=== PATIENT | female | born 1970 | race African-American/Black ===

== ENCOUNTER 2021-04-22 12:11 | Inpatient (IN) | payer MEDICAID, OTHER ==
[~2021-04-22] VITALS: Ht 157.5 cm; Wt 104.3 kg
[2021-04-22] MEDS ORDERED: ASPIRIN 325MG EC TABLET PO ONE (13:15)
[2021-04-22] MEDS ORDERED: LORAZEPAM 1MG TABLET PO ONE (13:15)
[2021-04-22 14:11] LABS: BASOPHILS % 0.3 % (0.0-2.0); EOSINOPHILS % 0.8 % (0.0-5.0); HEMATOCRIT. 32.4 % (36.0-48.0); HEMOGLOBIN. 11.1 g/dL (12.0-16.0); LYMPHOCYTES % 23.9 % (20.0-50.0); MEAN CORPUSCULAR HEMOGLOBIN 28.4 pg (28.0-32.0); MEAN CORPUSCULAR VOLUME 82.9 fL (81.0-99.0); MEAN PLATELET VOLUME 7.9 fl (7.4-10.4); PLATELET 265 x1000/uL (130-400); RED BLOOD CELL COUNT 3.91 mill/uL (4.2-5.4); RED CELL DISTRIBUTION WIDTH 13.3 % (11.6-14.6)
[2021-04-22 14:18] LABS: CHLORIDE 107 mEq/L (98-107)
[2021-04-22] MEDS ORDERED: ACETAMINOPHEN 325MG TABLET PO PRN (15:30)
[2021-04-22] MEDS ORDERED: MORPHINE SULFATE 2 MG/ML CPJ (NOT FOR IM USE) IV PRN (15:30)
[2021-04-22] MEDS ORDERED: ONDANSETRON HCL 4MG/2ML INJ IV PRN (15:30)
[2021-04-22] MEDS ORDERED: IPRATROPIUM/ALBUTEROL 0.5-3(2.5)MG/3ML NEB HHN PRN (15:30)
[2021-04-22] MEDS ORDERED: NALOXONE HCL 0.4MG/ML VIAL IV PRN (15:30)
[2021-04-22] MEDS ORDERED: CLONIDINE 0.1MG TABLET PO PRN (15:30)
[2021-04-22] MEDS ORDERED: DIPHENHYDRAMINE 50MG/ML VIAL IV PRN (15:30)
[2021-04-22] MEDS: ENOXAPARIN 40MG/0.4ML SYR SUBCUT SCH (16:27)
[2021-04-22] MEDS: METOPROLOL TARTRATE 25MG TABLET PO SCH (21:00)
[2021-04-22 21:35] VITALS: BP 106/59
[2021-04-23] MEDS ORDERED: FERR325T23 MT (00:16)
[2021-04-23] MEDS ORDERED: ASCO100T12 PO (00:16)
[2021-04-23 00:27] VITALS: BP 93/44
[2021-04-23] MEDS ORDERED: PNEUMOCOCCAL 23-VAL P-SAC VAC 0.5 ML IM ONE (00:30)
[2021-04-23 04:00] VITALS: BP 103/64
[2021-04-23 06:40] LABS: CHLORIDE 109 mEq/L (98-107)
[2021-04-23 06:49] LABS: LDL CHOLESTEROL 105 mg/dL (5-100)
[2021-04-23 06:51] LABS: HDL CHOLESTEROL 53 mg/dL (40-59)
[2021-04-23 07:06] LABS: BASOPHILS % 0.4 % (0.0-2.0); EOSINOPHILS % 2.3 % (0.0-5.0); HEMATOCRIT. 33.3 % (36.0-48.0); HEMOGLOBIN. 11.1 g/dL (12.0-16.0); LYMPHOCYTES % 33.4 % (20.0-50.0); MEAN CORPUSCULAR HEMOGLOBIN 27.9 pg (28.0-32.0); MEAN CORPUSCULAR VOLUME 83.7 fL (81.0-99.0); MEAN PLATELET VOLUME 8.3 fl (7.4-10.4); MONOCYTES % 7.9 % (2.0-8.0); PLATELET 261 x1000/uL (130-400); RED BLOOD CELL COUNT 3.98 mill/uL (4.2-5.4); RED CELL DISTRIBUTION WIDTH 13.3 % (11.6-14.6)
[2021-04-23 08:23] VITALS: BP 102/66
[2021-04-23] MEDS: METOPROLOL TARTRATE 25MG TABLET PO SCH ×2 (08:44→20:54)
[2021-04-23 12:16] VITALS: BP 108/56
[2021-04-23 16:30] VITALS: BP 102/58
[2021-04-23 16:44] LABS: CLARITY URINE CLEAR (CLEAR); COLOR URINE YELLOW (YELLOW); KETONES URINE NEGATIVE (NEGATIVE); LEUKOCYTE ESTERASE URINE 1+ (NEGATIVE); NITRITE URINE NEGATIVE (NEGATIVE); OCCULT BLOOD URINE 1+ (NEGATIVE); PROTEIN URINE NEGATIVE (NEGATIVE); SPECIFIC GRAVITY URINE 1.022 (1.005-1.030); UROBILINOGEN URINE 0.2 E.U./dL (0.2-1.0)
[2021-04-23] MEDS: ENOXAPARIN 40MG/0.4ML SYR SUBCUT SCH (18:01)
[2021-04-23 20:15] VITALS: BP 106/69
[2021-04-23] MEDS ORDERED: LORAZEPAM 2MG/ML CPJ IV PRN (20:45)
[2021-04-24 00:30] VITALS: BP 106/53
[2021-04-24 04:30] VITALS: BP 117/64
[2021-04-24 06:06] LABS: BASOPHILS % 0.5 % (0.0-2.0); EOSINOPHILS % 2.6 % (0.0-5.0); HEMATOCRIT. 33.4 % (36.0-48.0); HEMOGLOBIN. 11.2 g/dL (12.0-16.0); LYMPHOCYTES % 38.4 % (20.0-50.0); MEAN CORPUSCULAR VOLUME 83.5 fL (81.0-99.0); MEAN PLATELET VOLUME 8.5 fl (7.4-10.4); NEUTROPHILS % 50.5 % (40.0-76.0); PLATELET 274 x1000/uL (130-400); RED CELL DISTRIBUTION WIDTH 13.4 % (11.6-14.6)
[2021-04-24 06:14] LABS: CHLORIDE 110 mEq/L (98-107)
[2021-04-24 08:30] VITALS: BP 109/66
[2021-04-24] MEDS: METOPROLOL TARTRATE 25MG TABLET PO SCH ×2 (08:39→21:00)
[2021-04-24] MEDS: ASPIRIN 81MG TABLET PO SCH (08:52)
[2021-04-24 12:08] VITALS: BP 119/71
[2021-04-24] MEDS ORDERED: CEFTRIAXONE 1 G PREMIX 50 ML IV SCH (15:30)
[2021-04-24 16:24] VITALS: BP 117/60
[2021-04-24] MEDS ORDERED: CEFTRIAXONE 1,000 MG in DEXTROSE 5% WATER 50 ML IV SCH (17:00)
[2021-04-24] MEDS: ENOXAPARIN 40MG/0.4ML SYR SUBCUT SCH (17:00)
[2021-04-24 20:00] VITALS: BP 92/51
[2021-04-25] VITALS: BP 111/67
[2021-04-25 04:00] VITALS: BP 119/77
[2021-04-25 06:33] LABS: BASOPHILS % 0.3 % (0.0-2.0); EOSINOPHILS % 2.4 % (0.0-5.0); HEMATOCRIT. 33.1 % (36.0-48.0); HEMOGLOBIN. 10.9 g/dL (12.0-16.0); LYMPHOCYTES % 38.1 % (20.0-50.0); MEAN CORPUSCULAR HEMOGLOBIN 27.6 pg (28.0-32.0); MEAN CORPUSCULAR VOLUME 83.6 fL (81.0-99.0); MEAN PLATELET VOLUME 8.4 fl (7.4-10.4); MONOCYTES % 9.4 % (2.0-8.0); NEUTROPHILS % 49.8 % (40.0-76.0); PLATELET 256 x1000/uL (130-400); RED BLOOD CELL COUNT 3.96 mill/uL (4.2-5.4); RED CELL DISTRIBUTION WIDTH 13.4 % (11.6-14.6)
[2021-04-25 07:00] LABS: CHLORIDE 108 mEq/L (98-107)
[2021-04-25 08:00] VITALS: BP 119/77
[2021-04-25] MEDS: METOPROLOL TARTRATE 25MG TABLET PO SCH (09:38)
[2021-04-25] MEDS: ASPIRIN 81MG TABLET PO SCH (09:38)
[2021-04-25] MEDS ORDERED: NITROGLYCERIN SPRAY/4.9GM CAN TL ONE (10:00)
[2021-04-25] MEDS ORDERED: IOHEXOL-350 100 ML BOTTLE ONE (10:11)
[2021-04-25] MEDS ORDERED: ASPI-1160 PO (12:44)
[2021-04-25] MEDS ORDERED: METO25TA6 PO (12:44)
[2021-04-25 15:10] VITALS: BP 100/53
[2021-04-25] MEDS ORDERED: ENOXAPARIN 30MG/0.3ML SYR SUBCUT SCH (18:00)
== END 2021-04-25 16:06 | disposition home or self-care (01) | DRG 203 ==
LOC: ER 12:11 → 6WST 14:56 → ENRESERV 20:18
PROVIDERS: ADMIT Internal Medicine; ATTEND Internal Medicine
DX: R07.89 Other chest pain (principal); D64.9 Anemia, unspecified; M79.602 Pain in left arm; R20.0 Anesthesia of skin; Z83.3 Family history of diabetes mellitus
CPT/HCPCS: 36415; 71045; 75571; 80048; 80053; 80061; 81003; 83880; 84443; 84484; 85025; 93005; 93306; 93970; 94640; 99285; J0696; J1650; J2060; J2270; J7060; Q9967

== ENCOUNTER 2021-05-18 02:13 | Emergency (ER) | payer OTHER ==
[~2021-05-18] VITALS: Ht 157.5 cm; Wt 73.0 kg
[~2021-05-18 02:13] MED LIST: ASCO100T12 PO; ASPI-1160 PO; FERR325T23 MT; METO25TA6 PO
[2021-05-18 03:36] VITALS: BP 93/62
[2021-05-19] MEDS ORDERED: ASCO100T12 PO (01:35)
== END 2021-05-18 05:10 | disposition home or self-care (01) ==
LOC: ER 02:13
DX: U07.1 COVID-19 (principal)
CPT/HCPCS: 99281

== ENCOUNTER 2021-05-18 13:02 | Inpatient (IN) | payer OTHER ==
[~2021-05-18] VITALS: Ht 154.9 cm; Wt 86.7 kg
[2021-05-18] MEDS ORDERED: DEXAMETHASONE 10 MG/ML VIAL IV NR (14:00)
[2021-05-18] MEDS ORDERED: DOXYCYCLINE HYCLATE 100MG CAPSULE PO NR (14:30)
[2021-05-18 15:11] LABS: BASOPHILS % 0.3 % (0.0-2.0); CHLORIDE 96 mEq/L (98-107); HEMATOCRIT. 33.8 % (36.0-48.0); HEMOGLOBIN. 11.3 g/dL (12.0-16.0); MEAN CORPUSCULAR HEMOGLOBIN 27.4 pg (28.0-32.0); MEAN CORPUSCULAR VOLUME 81.8 fL (81.0-99.0); MEAN PLATELET VOLUME 9.2 fl (7.4-10.4); MONOCYTES % 6.7 % (2.0-8.0); PLATELET 226 x1000/uL (130-400); RED BLOOD CELL COUNT 4.14 mill/uL (4.2-5.4); RED CELL DISTRIBUTION WIDTH 13.1 % (11.6-14.6)
[2021-05-18] MEDS ORDERED: LACTATED RINGERS 1,000 ML IV SCH (15:30)
[2021-05-18 23:50] VITALS: BP 105/66
[2021-05-19] VITALS: BP 105/66
[2021-05-19] MEDS ORDERED: ASCO100T12 PO (01:35)
[2021-05-19 04:00] VITALS: BP 109/70
[2021-05-19] MEDS ORDERED: HYDROCODONE/ACETAMINOPHEN 5/325MG TABLET PO PRN (06:30)
[2021-05-19 08:00] VITALS: BP 104/64
[2021-05-19] MEDS ORDERED: NALOXONE HCL 0.4MG/ML VIAL IV PRN (08:15)
[2021-05-19] MEDS: FAMOTIDINE 20MG TABLET PO SCH ×2 (08:52→17:55)
[2021-05-19] MEDS: DEXAMETHASONE 4MG/ML 1ML VIAL IV SCH (08:52)
[2021-05-19] MEDS: ASPIRIN 81MG TABLET PO SCH (08:52)
[2021-05-19] MEDS: ENOXAPARIN 40MG/0.4ML SYR SUBCUT SCH (08:53)
[2021-05-19] MEDS: CEFTRIAXONE 1,000 MG in DEXTROSE 5% WATER 50 ML IV SCH (11:35)
[2021-05-19] MEDS: AZITHROMYCIN 500 MG in DEXT 5% WATER 250 ML IV SCH (11:36)
[2021-05-19 12:00] VITALS: BP 104/64
[2021-05-19 16:00] VITALS: BP 100/67
[2021-05-19 16:01] LABS: HEMATOCRIT. 32.6 % (36.0-48.0); HEMOGLOBIN. 11.1 g/dL (12.0-16.0); MEAN CORPUSCULAR HEMOGLOBIN 27.9 pg (28.0-32.0); MEAN CORPUSCULAR VOLUME 82.1 fL (81.0-99.0); MEAN PLATELET VOLUME 9.3 fl (7.4-10.4); PLATELET 274 x1000/uL (130-400); RED BLOOD CELL COUNT 3.96 mill/uL (4.2-5.4); RED CELL DISTRIBUTION WIDTH 13.5 % (11.6-14.6)
[2021-05-19 16:29] LABS: LDL CHOLESTEROL 134 mg/dL (5-100)
[2021-05-19 16:30] LABS: HDL CHOLESTEROL 51 mg/dL (40-59)
[2021-05-19 16:57] LABS: CHLORIDE 98 mEq/L (98-107)
[2021-05-19 17:28] LABS: PLATELET ESTIMATE NORMAL
[2021-05-19] MEDS: ACETAMINOPHEN 325MG TABLET PO PRN (18:26)
[2021-05-19 20:00] VITALS: BP 116/70
[2021-05-19] MEDS: GUAIFENESIN 600MG ER TABLET PO SCH (20:55)
[2021-05-20] VITALS: BP 108/70
[2021-05-20 04:00] VITALS: BP 106/61
[2021-05-20] MEDS: ACETAMINOPHEN 325MG TABLET PO PRN (05:41)
[2021-05-20] MEDS: BENZONATATE 100MG CAPSULE PO PRN (05:46)
[2021-05-20 08:00] VITALS: BP 107/63
[2021-05-20] MEDS: FAMOTIDINE 20MG TABLET PO SCH ×2 (08:26→17:16)
[2021-05-20] MEDS: ASPIRIN 81MG TABLET PO SCH (08:26)
[2021-05-20] MEDS: ENOXAPARIN 40MG/0.4ML SYR SUBCUT SCH (08:26)
[2021-05-20] MEDS: GUAIFENESIN 600MG ER TABLET PO SCH ×2 (08:26→20:09)
[2021-05-20] MEDS: DEXAMETHASONE 4MG/ML 1ML VIAL IV SCH (08:26)
[2021-05-20] MEDS: CEFTRIAXONE 1,000 MG in DEXTROSE 5% WATER 50 ML IV SCH (08:27)
[2021-05-20] MEDS: AZITHROMYCIN 500 MG in DEXT 5% WATER 250 ML IV SCH (08:27)
[2021-05-20 12:00] VITALS: BP 102/73
[2021-05-20 16:00] VITALS: BP 112/76
[2021-05-20 20:00] VITALS: BP 113/68
[2021-05-21] VITALS: BP 115/70
[2021-05-21 04:00] VITALS: BP 120/68
[2021-05-21 08:00] VITALS: BP 97/54
[2021-05-21] MEDS: GUAIFENESIN 600MG ER TABLET PO SCH ×2 (08:46→20:09)
[2021-05-21] MEDS: DEXAMETHASONE 4MG/ML 1ML VIAL IV SCH (08:46)
[2021-05-21] MEDS: CEFTRIAXONE 1,000 MG in DEXTROSE 5% WATER 50 ML IV SCH (08:46)
[2021-05-21] MEDS: ASPIRIN 81MG TABLET PO SCH (08:46)
[2021-05-21] MEDS: FAMOTIDINE 20MG TABLET PO SCH ×2 (08:46→15:52)
[2021-05-21] MEDS: AZITHROMYCIN 500 MG in DEXT 5% WATER 250 ML IV SCH (08:47)
[2021-05-21] MEDS: ENOXAPARIN 40MG/0.4ML SYR SUBCUT SCH (08:47)
[2021-05-21 12:00] VITALS: BP 115/66
[2021-05-21 16:00] VITALS: BP 107/63
[2021-05-21 20:00] VITALS: BP 124/77
[2021-05-22] VITALS: BP 100/45
[2021-05-22 04:00] VITALS: BP 120/70
[2021-05-22 08:00] VITALS: BP 93/60
[2021-05-22] MEDS: CEFTRIAXONE 1,000 MG in DEXTROSE 5% WATER 50 ML IV SCH (08:32)
[2021-05-22] MEDS: FAMOTIDINE 20MG TABLET PO SCH ×2 (08:33→16:15)
[2021-05-22] MEDS: DEXAMETHASONE 4MG/ML 1ML VIAL IV SCH (08:33)
[2021-05-22] MEDS: GUAIFENESIN 600MG ER TABLET PO SCH ×2 (08:33→20:43)
[2021-05-22] MEDS: ASPIRIN 81MG TABLET PO SCH (08:33)
[2021-05-22] MEDS: AZITHROMYCIN 500 MG TABLET PO SCH (08:33)
[2021-05-22] MEDS: ENOXAPARIN 40MG/0.4ML SYR SUBCUT SCH (08:34)
[2021-05-22 12:00] VITALS: BP 103/74
[2021-05-22 16:00] VITALS: BP 110/79
[2021-05-22 20:00] VITALS: BP 142/72
[2021-05-23 00:36] VITALS: BP 100/55
[2021-05-23 04:00] VITALS: BP 103/55
[2021-05-23 08:00] VITALS: BP 114/67
[2021-05-23] MEDS: AZITHROMYCIN 500 MG TABLET PO SCH (08:48)
[2021-05-23] MEDS: ASPIRIN 81MG TABLET PO SCH (08:48)
[2021-05-23] MEDS: CEFTRIAXONE 1,000 MG in DEXTROSE 5% WATER 50 ML IV SCH (08:48)
[2021-05-23] MEDS: FAMOTIDINE 20MG TABLET PO SCH ×2 (08:49→16:50)
[2021-05-23] MEDS: DEXAMETHASONE 4MG/ML 1ML VIAL IV SCH (08:49)
[2021-05-23] MEDS: GUAIFENESIN 600MG ER TABLET PO SCH ×2 (08:49→19:43)
[2021-05-23] MEDS: ENOXAPARIN 40MG/0.4ML SYR SUBCUT SCH (08:51)
[2021-05-23 12:00] VITALS: BP 112/56
[2021-05-23 16:00] VITALS: BP 91/68
[2021-05-23 19:52] VITALS: BP 129/68
[2021-05-24] VITALS: BP 106/53
[2021-05-24 04:00] VITALS: BP 110/68
[2021-05-24 08:00] VITALS: BP 107/68
[2021-05-24] MEDS: FAMOTIDINE 20MG TABLET PO SCH (08:32)
[2021-05-24] MEDS: ENOXAPARIN 40MG/0.4ML SYR SUBCUT SCH (08:32)
[2021-05-24] MEDS: GUAIFENESIN 600MG ER TABLET PO SCH (08:32)
[2021-05-24] MEDS: BENZONATATE 100MG CAPSULE PO PRN (08:32)
[2021-05-24] MEDS: DEXAMETHASONE 4MG/ML 1ML VIAL IV SCH (08:32)
[2021-05-24] MEDS: ASPIRIN 81MG TABLET PO SCH (08:32)
[2021-05-24] MEDS ORDERED: DEXA6TAB MT (11:36)
[2021-05-24 11:58] VITALS: BP 110/62
[2021-05-24 12:00] VITALS: BP 110/62
== END 2021-05-24 12:30 | disposition home or self-care (01) | DRG 720 ==
LOC: ER 13:02 → EDBEDREQ 16:31 → EDBEDREQTM 16:31 → MICUSO 19:00 → 6WST 21:16 → 7WST 05-19 08:03
PROVIDERS: ADMIT Internal Medicine; ATTEND Internal Medicine
DX: A41.89 Other specified sepsis (principal); J96.01 Acute respiratory failure with hypoxia; J12.82 Pneumonia due to coronavirus disease 2019; U07.1 COVID-19; E87.1 Hypo-osmolality and hyponatremia; E78.5 Hyperlipidemia, unspecified; D64.9 Anemia, unspecified; E66.9 Obesity, unspecified; J98.11 Atelectasis; Z98.891 History of uterine scar from previous surgery; Z71.3 Dietary counseling and surveillance; Z79.899 Other long term (current) drug therapy; Z79.82 Long term (current) use of aspirin; Z68.36 Body mass index [BMI] 36.0-36.9, adult
CPT/HCPCS: 36415; 71045; 80048; 80053; 80061; 83880; 84145; 84484; 85025; 87426; 93005; 99291; J0456; J0696; J1100; J1650; J7040; J7060; U0003; U0005

== ENCOUNTER 2021-09-11 19:58 | Emergency (ER) | payer MEDICAID, OTHER ==
[~2021-09-11] VITALS: Ht 154.9 cm; Wt 97.0 kg
[~2021-09-11 19:58] MED LIST changes: +DEXA6TAB MT
[2021-09-11 20:58] VITALS: BP 147/48
[2021-09-11] MEDS ORDERED: KETOROLAC 60MG/2ML VIAL IM ONE (22:45)
[2021-09-11 22:53] LABS: CLARITY URINE CLEAR (CLEAR); COLOR URINE YELLOW (YELLOW); KETONES URINE TRACE (NEGATIVE); LEUKOCYTE ESTERASE URINE 2+ (NEGATIVE); NITRITE URINE NEGATIVE (NEGATIVE); OCCULT BLOOD URINE TRACE (NEGATIVE); PH URINE 5.5 (4.5-8.0); PROTEIN URINE NEGATIVE (NEGATIVE); SPECIFIC GRAVITY URINE 1.027 (1.005-1.030); UROBILINOGEN URINE 0.2 E.U./dL (0.2-1.0)
[2021-09-11] MEDS ORDERED: CIPR-263 MT (23:39)
== END 2021-09-12 00:18 | disposition home or self-care (01) ==
LOC: ER 19:58
DX: N12 Tubulo-interstitial nephritis, not specified as acute or chronic (principal); Z86.16 Personal history of COVID-19
CPT/HCPCS: 71045; 81003; 87086; 96372; 99284; J1885

== ENCOUNTER 2021-09-26 16:45 | Emergency (ER) | payer OTHER ==
[~2021-09-26 16:45] MED LIST changes: +CIPR-263 MT
== END 2021-09-27 01:22 | disposition left against medical advice (07) ==
LOC: ER 16:45
DX: M79.602 Pain in left arm (principal); Z53.21 Procedure and treatment not carried out due to patient leaving prior to being seen by health care provider

== ENCOUNTER 2021-10-26 12:13 | Emergency (ER) | payer OTHER ==
[~2021-10-26] VITALS: Ht 154.9 cm; Wt 97.0 kg
[2021-10-26] MEDS ORDERED: KETOROLAC 60MG/2ML VIAL IM ONE (12:45)
[2021-10-26] MEDS ORDERED: ACETAMINOPHEN 325MG TABLET PO ONE (13:30)
[2021-10-26 13:44] LABS: CLARITY URINE TURBID (CLEAR); COLOR URINE YELLOW (YELLOW); KETONES URINE NEGATIVE (NEGATIVE); LEUKOCYTE ESTERASE URINE NEGATIVE (NEGATIVE); NITRITE URINE NEGATIVE (NEGATIVE); OCCULT BLOOD URINE TRACE (NEGATIVE); PH URINE 5.5 (4.5-8.0); PROTEIN URINE TRACE (NEGATIVE); SPECIFIC GRAVITY URINE 1.025 (1.005-1.030); UROBILINOGEN URINE 0.2 E.U./dL (0.2-1.0)
[2021-10-26 13:59] LABS: BASOPHILS % 0.7 % (0.0-2.0); EOSINOPHILS % 1.5 % (0.0-5.0); HEMATOCRIT. 34.1 % (36.0-48.0); HEMOGLOBIN. 11.4 g/dL (12.0-16.0); LYMPHOCYTES % 29.5 % (20.0-50.0); MEAN CORPUSCULAR HEMOGLOBIN 27.2 pg (28.0-32.0); MEAN CORPUSCULAR VOLUME 81.3 fL (81.0-99.0); MEAN PLATELET VOLUME 7.8 fl (7.4-10.4); MONOCYTES % 6.4 % (2.0-8.0); NEUTROPHILS % 61.9 % (40.0-76.0); PLATELET 299 x1000/uL (130-400); RED BLOOD CELL COUNT 4.19 mill/uL (4.2-5.4); RED CELL DISTRIBUTION WIDTH 14.1 % (11.6-14.6)
[2021-10-26 14:06] LABS: CHLORIDE 107 mEq/L (98-107)
[2021-10-26] MEDS ORDERED: IBUP-2029 MT (14:36)
[2021-10-26] MEDS ORDERED: HYDR-4001 MT (14:36)
[2021-10-26 14:46] VITALS: BP 145/95
== END 2021-10-26 14:47 | disposition home or self-care (01) ==
LOC: ER 13:25
DX: R10.12 Left upper quadrant pain (principal); Z87.442 Personal history of urinary calculi
CPT/HCPCS: 36415; 80048; 81003; 81025; 85025; 96372; 99283; J1885

== ENCOUNTER 2021-11-18 19:18 | Emergency (ER) | payer OTHER ==
[~2021-11-18] VITALS: Ht 157.5 cm; Wt 105.0 kg
[~2021-11-18 19:18] MED LIST changes: +HYDR-4001 MT; +IBUP-2029 MT
[2021-11-18] MEDS ORDERED: KETOROLAC 30MG/ML VIAL IV STA (20:02)
[2021-11-18] MEDS ORDERED: ONDANSETRON HCL 4MG/2ML INJ IV STA (20:02)
[2021-11-18] MEDS ORDERED: SODIUM CHLORIDE 0.9% 1,000 ML IV ONE (20:15)
[2021-11-18 20:29] LABS: CHLORIDE 108 mEq/L (98-107)
[2021-11-18 20:30] LABS: BASOPHILS % 0.4 % (0.0-2.0); HEMATOCRIT. 33.5 % (36.0-48.0); HEMOGLOBIN. 11.2 g/dL (12.0-16.0); LYMPHOCYTES % 10.7 % (20.0-50.0); MEAN CORPUSCULAR HEMOGLOBIN 27.5 pg (28.0-32.0); MEAN CORPUSCULAR VOLUME 82.1 fL (81.0-99.0); MEAN PLATELET VOLUME 7.9 fl (7.4-10.4); MONOCYTES % 2.1 % (2.0-8.0); NEUTROPHILS % 86.8 % (40.0-76.0); PLATELET 303 x1000/uL (130-400); RED BLOOD CELL COUNT 4.08 mill/uL (4.2-5.4); RED CELL DISTRIBUTION WIDTH 13.8 % (11.6-14.6)
[2021-11-18 22:00] LABS: CLARITY URINE CLEAR (CLEAR); COLOR URINE YELLOW (YELLOW); KETONES URINE TRACE (NEGATIVE); LEUKOCYTE ESTERASE URINE NEGATIVE (NEGATIVE); NITRITE URINE NEGATIVE (NEGATIVE); OCCULT BLOOD URINE 2+ (NEGATIVE); PROTEIN URINE TRACE (NEGATIVE); SPECIFIC GRAVITY URINE 1.027 (1.005-1.030)
[2021-11-18] MEDS ORDERED: TAMSULOSIN HCL 0.4MG SR CAPSULE PO ONE (22:45)
[2021-11-18] MEDS ORDERED: IBUP-2028 MT (23:48)
[2021-11-18] MEDS ORDERED: TAMS-11 MT (23:48)
[2021-11-18] MEDS ORDERED: MORP15TA67 MT (23:48)
[2021-11-19] MEDS ORDERED: KETOROLAC 15MG/ML VIAL IV ONE
[2021-11-19 00:04] VITALS: BP 130/81
== END 2021-11-19 00:35 | disposition home or self-care (01) ==
LOC: ER 19:18
DX: N20.0 Calculus of kidney (principal); Z98.890 Other specified postprocedural states; Z79.82 Long term (current) use of aspirin
CPT/HCPCS: 36415; 74176; 80053; 81003; 83690; 85025; 87077; 87086; 96361; 96374; 96375; 96376; 99284; J1885; J2405; J7030

== ENCOUNTER 2021-11-25 22:23 | Emergency (ER) | payer OTHER ==
[~2021-11-25] VITALS: Ht 154.9 cm; Wt 105.0 kg
[~2021-11-25 22:23] MED LIST changes: +IBUP-2028 MT; +MORP15TA67 MT; +TAMS-11 MT
[2021-11-25] MEDS ORDERED: KETOROLAC 30MG/ML VIAL IM NR (23:30)
[2021-11-25] MEDS ORDERED: TRAMADOL 50MG TABLET PO NR (23:30)
[2021-11-25 23:48] LABS: CHLORIDE 107 mEq/L (98-107)
[2021-11-26 01:21] LABS: BASOPHILS % 0.4 % (0.0-2.0); EOSINOPHILS % 3.2 % (0.0-5.0); HEMATOCRIT. 32.4 % (36.0-48.0); HEMOGLOBIN. 10.7 g/dL (12.0-16.0); LYMPHOCYTES % 29.7 % (20.0-50.0); MEAN CORPUSCULAR HEMOGLOBIN 27.2 pg (28.0-32.0); MEAN CORPUSCULAR VOLUME 82.1 fL (81.0-99.0); MEAN PLATELET VOLUME 7.8 fl (7.4-10.4); MONOCYTES % 7.9 % (2.0-8.0); NEUTROPHILS % 58.8 % (40.0-76.0); PLATELET 303 x1000/uL (130-400); RED BLOOD CELL COUNT 3.94 mill/uL (4.2-5.4); RED CELL DISTRIBUTION WIDTH 13.5 % (11.6-14.6)
[2021-11-26] MEDS ORDERED: AMOX-424 MT (01:45)
[2021-11-26] MEDS ORDERED: TRAM50TA94 MT (01:45)
[2021-11-26 01:58] VITALS: BP 128/89
[2021-11-26] MEDS ORDERED: AMOXICILLIN/POTASSIUM CLAVULANATE 875/125MG TAB PO ONE (02:00)
== END 2021-11-26 02:07 | disposition home or self-care (01) ==
LOC: ER 22:23
DX: R59.0 Localized enlarged lymph nodes (principal); D72.818 Other decreased white blood cell count; I10 Essential (primary) hypertension; E78.00 Pure hypercholesterolemia, unspecified; E66.9 Obesity, unspecified; Z68.41 Body mass index [BMI] 40.0-44.9, adult; Z20.822 Contact with and (suspected) exposure to COVID-19
CPT/HCPCS: 36415; 71045; 80048; 81025; 85025; 96372; 99284; J1885

== ENCOUNTER 2021-12-09 20:31 | Emergency (ER) | payer OTHER ==
[~2021-12-09] VITALS: Ht 154.9 cm; Wt 103.0 kg
[~2021-12-09 20:31] MED LIST changes: +AMOX-424 MT; +TRAM50TA94 MT
[2021-12-09] MEDS ORDERED: ONDANSETRON HCL 4MG/2ML INJ IV ONE (23:45)
[2021-12-10 01:39] LABS: BASOPHILS % 0.7 % (0.0-2.0); EOSINOPHILS % 3.7 % (0.0-5.0); HEMATOCRIT. 34.1 % (36.0-48.0); HEMOGLOBIN. 11.5 g/dL (12.0-16.0); LYMPHOCYTES % 41.4 % (20.0-50.0); MEAN CORPUSCULAR HEMOGLOBIN 27.8 pg (28.0-32.0); MEAN CORPUSCULAR VOLUME 82.4 fL (81.0-99.0); MEAN PLATELET VOLUME 8.2 fl (7.4-10.4); MONOCYTES % 7.5 % (2.0-8.0); NEUTROPHILS % 46.7 % (40.0-76.0); PLATELET 301 x1000/uL (130-400); RED BLOOD CELL COUNT 4.14 mill/uL (4.2-5.4); RED CELL DISTRIBUTION WIDTH 13.2 % (11.6-14.6)
[2021-12-10 01:46] LABS: CHLORIDE 108 mEq/L (98-107)
[2021-12-10 01:50] LABS: CLARITY URINE CLEAR (CLEAR); COLOR URINE YELLOW (YELLOW); KETONES URINE TRACE (NEGATIVE); LEUKOCYTE ESTERASE URINE 2+ (NEGATIVE); NITRITE URINE NEGATIVE (NEGATIVE); OCCULT BLOOD URINE 2+ (NEGATIVE); PROTEIN URINE TRACE (NEGATIVE); SPECIFIC GRAVITY URINE 1.025 (1.005-1.030)
[2021-12-10] MEDS ORDERED: CEFTRIAXONE 1 G PREMIX 50 ML IV NR (03:15)
[2021-12-10] MEDS ORDERED: CEPH500T MT (03:17)
[2021-12-10 04:39] VITALS: BP 132/65
[2021-12-10] MEDS ORDERED: IOHEXOL-300 100 ML BOTTLE ONE (05:53)
== END 2021-12-10 04:41 | disposition home or self-care (01) ==
LOC: ER 20:31
DX: N39.0 Urinary tract infection, site not specified (principal); Z98.890 Other specified postprocedural states; Z79.82 Long term (current) use of aspirin
CPT/HCPCS: 36415; 71045; 74177; 80053; 81003; 83690; 84484; 85025; 87086; 93005; 96365; 96375; 99285; J0696; J2405; Q9967

== ENCOUNTER 2022-01-14 21:16 | Emergency (ER) | payer MEDICAID, OTHER ==
[~2022-01-14] VITALS: Ht 157.5 cm; Wt 107.3 kg
[~2022-01-14 21:16] MED LIST changes: +CEPH500T MT
[2022-01-14 22:35] LABS: BASOPHILS % 0.5 % (0.0-2.0); HEMATOCRIT. 33.9 % (36.0-48.0); HEMOGLOBIN. 11.1 g/dL (12.0-16.0); LYMPHOCYTES % 36.7 % (20.0-50.0); MEAN CORPUSCULAR HEMOGLOBIN 27.3 pg (28.0-32.0); MEAN CORPUSCULAR VOLUME 83.1 fL (81.0-99.0); MONOCYTES % 7.2 % (2.0-8.0); NEUTROPHILS % 53.6 % (40.0-76.0); PLATELET 294 x1000/uL (130-400); RED BLOOD CELL COUNT 4.08 mill/uL (4.2-5.4); RED CELL DISTRIBUTION WIDTH 13.1 % (11.6-14.6)
[2022-01-14 22:38] LABS: CHLORIDE 109 mEq/L (98-107)
[2022-01-15] MEDS ORDERED: BENZ-16 MT (01:01)
[2022-01-15 01:14] VITALS: BP 103/57
== END 2022-01-15 01:20 | disposition home or self-care (01) ==
LOC: ER 21:25
DX: B34.9 Viral infection, unspecified (principal); Z20.822 Contact with and (suspected) exposure to COVID-19; Z79.899 Other long term (current) drug therapy; Z98.890 Other specified postprocedural states
CPT/HCPCS: 36415; 71045; 80053; 83880; 84484; 85025; 87426; 87804; 93005; 99285

== ENCOUNTER 2022-02-14 12:14 | Emergency (ER) | payer OTHER ==
[~2022-02-14] VITALS: Ht 167.6 cm; Wt 91.0 kg
[~2022-02-14 12:14] MED LIST changes: +BENZ-16 MT
[2022-02-14] MEDS ORDERED: METH-653 MT (13:41)
[2022-02-14] MEDS ORDERED: IBUP-2029 MT (13:41)
[2022-02-14] MEDS ORDERED: KETOROLAC 60MG/2ML VIAL IM ONE (13:45)
[2022-02-14] MEDS ORDERED: METHOCARBAMOL 500MG TABLET PO ONE (13:45)
[2022-02-14 14:11] VITALS: BP 127/75
== END 2022-02-14 14:12 | disposition home or self-care (01) ==
LOC: ER 12:14
DX: M25.512 Pain in left shoulder (principal); Z79.899 Other long term (current) drug therapy; Z98.890 Other specified postprocedural states
CPT/HCPCS: 96372; 99283; J1885

== ENCOUNTER 2022-02-24 10:46 | Emergency (ER) | payer OTHER ==
[~2022-02-24] VITALS: Ht 165.1 cm; Wt 100.0 kg
[~2022-02-24 10:46] MED LIST changes: +METH-653 MT
[2022-02-24] MEDS ORDERED: NAPR-681 MT (12:15)
[2022-02-24] MEDS ORDERED: CYCL10TA7 MT (12:15)
[2022-02-24] MEDS ORDERED: KETOROLAC 60MG/2ML VIAL IM ONE (12:15)
[2022-02-24] MEDS ORDERED: AMOX-494 MT (12:15)
[2022-02-24 12:25] VITALS: BP 143/73
== END 2022-02-24 13:07 | disposition home or self-care (01) ==
LOC: ER 10:46
DX: H66.92 Otitis media, unspecified, left ear (principal); M54.2 Cervicalgia; D64.9 Anemia, unspecified; Z87.01 Personal history of pneumonia (recurrent); Z87.440 Personal history of urinary (tract) infections; Z79.899 Other long term (current) drug therapy
CPT/HCPCS: 96372; 99283; J1885

== ENCOUNTER 2025-05-25 23:53 | Emergency (ER) | payer OTHER ==
[~2025-05-25] VITALS: Ht 154.9 cm; Wt 101.0 kg
[~2025-05-25 23:53] MED LIST changes: +AMOX-494 MT; +CYCL10TA21 MT; +NAPR-681 MT; -TAMS-11 MT; +TAMS-54 MT
[2025-05-26 00:02] VITALS: O2SAT 100
[2025-05-26] MEDS: ONDANSETRON HCL 4MG/2ML INJ IV ONE (00:46)
[2025-05-26] MEDS: SODIUM CHLORIDE 0.9% 1,000 ML IV ONE (00:46)
[2025-05-26] MEDS: KETOROLAC 15MG/ML VIAL IV ONE (00:46)
[2025-05-26 00:52] LABS: BASOPHILS % 1.0 % (0.0-2.0); EOSINOPHILS % 1.5 % (0.0-5.0); HEMATOCRIT. 33.2 % (36.0-48.0); HEMOGLOBIN. 10.9 g/dL (12.0-16.0); LYMPHOCYTES % 39.4 % (20.0-50.0); MEAN PLATELET VOLUME 8.0 fl (7.4-10.4); MONOCYTES % 6.4 % (2.0-8.0); NEUTROPHILS % 51.7 % (40.0-76.0); PLATELET 307 x1000/uL (130-400); RED BLOOD CELL COUNT 4.03 mill/uL (4.2-5.4); RED CELL DISTRIBUTION WIDTH 13.7 % (11.6-14.6)
[2025-05-26 00:56] LABS: CLARITY URINE CLEAR (CLEAR); COLOR URINE YELLOW (YELLOW); GLUCOSE URINE NEGATIVE (NEGATIVE); KETONES URINE TRACE (NEGATIVE); LEUKOCYTE ESTERASE URINE NEGATIVE (NEGATIVE); NITRITE URINE NEGATIVE (NEGATIVE); OCCULT BLOOD URINE TRACE (NEGATIVE); PH URINE 5.5 (4.5-8.0); PROTEIN URINE NEGATIVE (NEGATIVE); SPECIFIC GRAVITY URINE 1.026 (1.005-1.030); UROBILINOGEN URINE 0.2 E.U./dL (0.2-1.0)
[2025-05-26 01:01] LABS: WBC URINE 0-2 /hpf (0-2)
[2025-05-26 01:02] LABS: BACTERIA URINE RARE; SQUAMOUS EPITHELIAL CELL URINE FEW /lpf (RARE/1+)
[2025-05-26 01:03] LABS: CREATININE 1.1 mg/dL (0.6-1.0)
[2025-05-26 01:04] LABS: ETHANOL BLOOD < 10 mg/dL (<10); UREA NITROGEN BLOOD 15 mg/dL (9-23)
[2025-05-26 01:05] LABS: ASPARTATE AMINOTRANSFERASE 15 IU/L (<34); BILIRUBIN DIRECT 0.1 mg/dL (<=3.0)
[2025-05-26 01:06] LABS: BILIRUBIN TOTAL 0.4 mg/dL (0.1-1.0); PROTEIN TOTAL 7.2 g/dL (6.0-8.3)
[2025-05-26 01:07] LABS: *AMPHETAMINES SCREEN URINE NEGATIVE (NEGATIVE); *BARBITURATES SCREEN URINE NEGATIVE (NEGATIVE); *BENZODIAZEPINES SCREEN URINE NEGATIVE (NEGATIVE); *COCAINE SCREEN URINE NEGATIVE (NEGATIVE); CANNABINOID URINE SCREEN NEGATIVE (NEGATIVE); ECSTASY MDMA SCREEN URINE NEGATIVE (NEGATIVE); METHADONE URINE SCREEN NEGATIVE (NEGATIVE); OPIATES URINE SCREEN NEGATIVE (NEGATIVE); PHENCYCLIDINE URINE SCREEN NEGATIVE (NEGATIVE)
[2025-05-26] MEDS ORDERED: ACET-2708 MT (02:27)
[2025-05-26 02:45] VITALS: BP 132/78; PULSE 61; RESP 15; TEMP 36.6; O2SAT 99
== END 2025-05-26 02:50 | disposition home or self-care (01) ==
LOC: ER 23:53
DX: R10.11 Right upper quadrant pain (principal); M19.90 Unspecified osteoarthritis, unspecified site; F10.90 Alcohol use, unspecified, uncomplicated; Z79.82 Long term (current) use of aspirin; Z87.01 Personal history of pneumonia (recurrent); Z87.442 Personal history of urinary calculi; Z79.899 Other long term (current) drug therapy; Z20.822 Contact with and (suspected) exposure to COVID-19; Y90.9 Presence of alcohol in blood, level not specified
CPT/HCPCS: 99285; 80076; 80305; 80048; 81003; 80320; 83690; 85025; 36415; 74176; 76705; 96361; 96374; 96375; J1885; J2405; J7030; Z7610; G0480